=== PATIENT | male | born 1970 | race Caucasian/White ===

== ENCOUNTER 2022-12-09 17:50 | Emergency (ER) | payer OTHER, SELFPAY ==
[2022-12-09 17:56] VITALS: BP 187/98; PULSE 94; RESP 18; TEMP 37.1; O2SAT 98; BMI 32.1
--- NOTE | 2022-12-09 18:00 | ED_ITS ---
HPI - General Adult General Chief complaint: Skin/Abscess/Foreign Body Stated complaint: fish hook in finger Time Seen by Provider: 12/09/22 19:01 History of Present Illness HPI narrative: Seen by [employer] Rashmi Related Data Previous Rx's Medication Instructions Recorded doxycycline hyclate 100 mg tablet 100 mg PO BID #10 tabs 12/09/22 Allergies Allergy/AdvReac Type Severity Reaction Status Date / Time amoxicillin [Amoxicillin] Allergy Intermediate HIVES Verified 12/09/22 20:36 penicillin G [PENICILLIN G] Allergy Unknown RASH Verified 12/09/22 20:36 PMFSH Social History Social History Alcohol intake: never Smoked in Last 30 Days: No Use of substances other than those prescribed or required for medical reasons: No Advance Directives: No Advance Directives Information Provided: No Physical Exam ED Vital Signs: Vital Signs - 24 hr 12/09/22 17:56 Temperature 98.7 F Pulse Rate 94 Respiratory Rate 18 Blood Pressure 187/98 H Pulse Oximetry 98 Oxygen Delivery Method Room Air BMI result Body Mass Index 32.1 Course Course Course Narrative: RME; 52 yold male presents to the ED fish hook being stuck in index right finger. patient denies any other trauma. Medications Administered Discontinued Medications Generic Name Dose Route Start Last Admin Trade Name Freq PRN Reason Stop Dose Admin Diphtheria/Tetanus/Acell Pertussis 0.5 ml 12/09/22 20:02 12/09/22 20:38 Diphth,Pertus(Acell),Tet Adult 0.5 Ml Syringe IM 12/09/22 20:03 0.5 ml .ONCE ONE Administration Lidocaine HCl 5 ml 12/09/22 20:02 12/09/22 20:20 Lidocaine Hcl 1 % Mpf 5 Ml Vial INFILTRATI 12/09/22 20:03 5 ml ONCE ONE Administration Discharge Plan Discharge Clinical Impression: Fish hook in finger Patient Disposition: Home, Self-Care Additional Instructions: You were seen in the emergency department today for a fish hook stuck in your finger. The fishhook was removed in the emergency department. Your Tdap (tetanus) vaccine was updated at your visit today. You are being prescribed a c ourse of antibiotics to prevent infection, please complete the full course as prescribed. Please assess the wound daily for any signs of infection. Return to the emergency department if you develop redness, swelling, thick yellow drainage, redness streaking up your finger, fever 100.4? F, or any other concerning symptoms. Prescriptions: New doxycycline hyclate 100 mg tablet 100 mg PO BID Qty: 10 0RF Interventions: ED Discharge Assessment Last Done: 12/09/22 20:44 Discharge Date/Time: 12/09/22 20:44
[2022-12-09] MEDS: Lidocaine HCl 1 % MPF 5 ML VIAL INFILTRATI (20:20)
--- NOTE | 2022-12-09 20:30 | ED.GENADULT ---
HPI - General Adult General Chief complaint: Skin/Abscess/Foreign Body Stated complaint: fish hook in finger Time Seen by Provider: 12/09/22 19:01 Source: patient Mode of arrival: ambulatory Limitations: no limitations History of Present Illness HPI narrative: Patient is a 52-year-old [id number] male presenting to the emergency department with fishhook embedded in right index finger. He reports localized pain, denies numbness or tingling. Unsure of most recent tetanus vaccine. Denies any other injuries. MD complaint: Foreign body finger Onset (ago): hour(s) Location: right and upper extremity Radiation: non-radiation Severity: mild Quality: aching Pain Consistency: constant Relieving factors: none Exacerbating factors: none Associated symptoms: denies other symptoms Treatments prior to arrival: none Related Data Previous Rx's Medication Instructions Recorded doxycycline hyclate 100 mg tablet 100 mg PO BID #10 tabs 12/09/22 Allergies Allergy/AdvReac Type Severity Reaction Status Date / Time amoxicillin [Amoxicillin] Allergy Intermediate HIVES Verified 12/09/22 20:36 penicillin G [PENICILLIN G] Allergy Unknown RASH Verified 12/09/22 20:36 Review of Systems Review of Systems: As per HPI. Yes all other systems are reviewed and are negative Constitutional: Constitutional: Reports as per HPI [facility] Social History Social History Alcohol intake: never Smoked in Last 30 Days: No Use of substances other than those prescribed or required for medical reasons: No Advance Directives: No Advance Directives Information Provided: No Physical Exam ED Vital Signs: Vital Signs - 24 hr 12/09/22 17:56 Temperature 98.7 F Pulse Rate 94 Respiratory Rate 18 Blood Pressure 187/98 H Pulse Oximetry 98 Oxygen Delivery Method Room Air BMI result Body Mass Index 32.1 Vital signs have been reviewed and appear to be correct. Blood pressure elevated. Heart rate normal. Respiratory rate normal. Temperature normal. Oxygen saturation normal. Const General: cooperative, healthy appearing and no acute distress Orientation/consciousness: oriented to person, oriented to place, oriented to time and patient oriented x3 Limitations: no limitations HENMT Head: Yes normocephalic and Yes atraumatic Ears: external ears normal General nose exam: Normal external nose present Face and sinus: Yes face symmetric Mouth: oropharynx normal and moist mucous membranes Throat: Yes uvula midline Eyes Pupils: Equal, round and reactive pupils present Neck Neck: Yes normal visual inspection and Yes supple Resp Effort & Inspection: normal respiratory effort and able to speak in complete sentences Auscultation: clear to auscultation bilaterally Cardio Rate: regular rate Rhythm: regular rhythm Heart sounds: S1 normal heart sound present and S2 normal heart sound present GI Palpation (GI): Soft to palpation and nontender Auscultation: normoactive bowel sounds General: Yes no CVA tenderness Back/Spine/Pelvis Back: no CVA tenderness Skin General skin exam: elasticity normal and turgor normal Neuro General: oriented to person, oriented to place, oriented to time, patient oriented x3, moves all extremities, no focal motor deficits and CN's II-XI intact bilaterally Cranial nerves: Yes Equal, round and reactive pupils present Cognition (Neuro): normal cognition Extrem General: Yes full ROM, Yes no pedal edema and Yes no calf tenderness Right upper extremity: Extremity exam: right hand Details: neuromotor exam abnormal, neurosensory exam normal, tendon exam normal, normal ROM of fingers and foreign body Location: of the 2nd digit Location: at the distal phalanx and on the radial aspect Psych Mental Status: mental status grossly normal Affect: normal affect Thought process: Normal thought process present Medications Administered Discontinued Medications Generic Name Dose Route Start Last Admin Trade Name Freq PRN Reason Stop Dose Admin Lidocaine HCl 5 ml 12/09/22 20:02 12/09/22 20:20 Lidocaine Hcl 1 % Mpf 5 Ml Vial INFILTRATI 12/09/22 20:03 5 ml ONCE ONE Administration Procedures Foreign Body Removal Time Out Performed: yes Site: right and hand Description of foreign body: fish hook Sedation/Analgesia: other (1mL infiltrated lidocaine) Technique: removal with forceps, incision made to facilitate removal and irrigation Confirmed by:: direct visualization Complications: none Post-procedure exam: awake, alert Neurovascular: normal capillary fill, distal light touch sensation intact and no change from pre-procedure Medical Decision Making Medical Decision Making MDM Narrative: Patient is a 52-year-old [id number] male presenting to the emergency department with fishhook embedded in right index finger. On exam patient is awake, A+Ox3, VS WNL, afebrile, normal neurological exam without focal deficits, fishhook noted to distal phalanx of right index finger on the radial side, no active bleeding. Given reported symptoms and physical exam findings, initial differential includes foreign body to finger, risk for tetanus, cellulitis. Per procedure note. Tdap updated. Will treat patient with short course of doxycycline to prevent infection as he has allergy to amoxicillin and penicillin. Advised patient to assess wound daily for any signs of infection and return if this occurs. Return precautions discussed at bedside. And verbalized understanding of and agreement with plan. Differential Diagnosis Differential Diagnoses: The differential diagnosis associated with the presentation includes As per MDM. External Record Review External record reviewed: Inpatient record, Office record and Outpatient record Prescription Management I considered prescription management with: Antibiotic Discharge Plan Discharge Clinical Impression: Fish hook in finger Patient Disposition: Home, Self-Care Additional Instructions: You were seen in the emergency department today for a fish hook stuck in your finger. The fishhook was removed in the emergency department. Your Tdap (tetanus) vaccine was updated at your visit today. You are being prescribed a course of antibiotics to prevent infection, please complete the full course as prescribed. Please assess the wound daily for any signs of infection. Return to the emergency department if you develop redness, swelling, thick yellow drainage, redness streaking up your finger, fever 100.4? F, or any other concerning symptoms. Prescriptions: New doxycycline hyclate 100 mg tablet 100 mg PO BID Qty: 10 0RF
[2022-12-09] MEDS: Diphth,Pertus(ACell),Tet Adult 0.5 ML SYRINGE IM (20:38)
== END 2022-12-09 20:44 | disposition home or self-care (01) ==
PROVIDERS: Emergency Provider Internal Medicine; PCP Internal Medicine
DX: S61.230A Puncture wound without foreign body of right index finger without damage to nail, initial encounter (principal); S60.410A Abrasion of right index finger, initial encounter; Y28.9XXA Contact with unspecified sharp object, undetermined intent, initial encounter; Y93.9 Activity, unspecified; Y92.9 Unspecified place or not applicable; Y99.9 Unspecified external cause status; Z23 Encounter for immunization
CPT/HCPCS: 90471; 90715; 99284